=== PATIENT | male | born 1980 | race Caucasian/White ===

== ENCOUNTER → 2017-08-12 | Outpatient (CLI) | payer OTHER ==
--- NOTE | 2017-08-12 16:50 | Diagnostic Imaging Report ---
Exam: Brain MRI and intracranial MRA without IV contrast History: Right-sided cerebral CVA, dizziness, headache. Comparison studies: None. Technique: Brain: Pre-contrast: Sagittal T2; axial T2, T1-IR, MPGR, DWI, axial and coronal T2 flair Intracranial MRA: Axial 3-D [id number] with coronal, sagittal and 3-D MIP reformats. Findings: Brain: Scalp: No abnormal signal. No masses. Bone marrow: Normal in signal intensity. Brain sulci: Normal in size. Ventricles: Normal in size. No hydrocephalus. Extra-axial spaces: No mass, no fluid collection. Parenchyma: No mass, hemorrhage or acute ischemia. Chronic insult with encephalomalacia and gliosis centered along the right inferior frontal gyrus extends to the right superior insula involves the right inferior perirolandic gyri along the right subcentral gyrus in the right MCA vascular territory. No additional signal abnormalities. Suprasellar region: No abnormalities. Craniocervical junction: No abnormalities. The foramen magnum is patent. No Chiari malformations. Vessels: Normal flow-voids in the arteries and sinuses. Incidental findings: Nonspecific inflammatory mucosal thickening in the left frontal sinus, left ethmoids and bilateral maxillary sinuses. Intracranial MRA: Internal carotid arteries: Patent, no flow abnormalities. Middle cerebral arteries: Patent, no abnormalities in the M1 and proximal M2 segments. Anterior cerebral arteries: Patent, no abnormalities in the A1 and proximal A2 segments. Vertebral arteries: Patent, no flow abnormalities in the included intradural V4 segments. The origins and proximal segments of the posterior inferior cerebellar arteries are patent bilaterally. Basilar artery: Patent, no flow abnormalities. Posterior cerebral arteries: Patent, no flow abnormalities. Anatomical variants: Acom: Patent. Pcomms: Hypoplastic. Vertebral arteries:Codominant. IMPRESSION: Brain MRI: 1. Chronic right MCA territory vascular insult. 2. No additional intracranial abnormalities. Intracranial MRA: No intracranial MRA abnormalities. Signed by: Dr. Adolfo Salazar M.D. on 08/12/2017 4:47 PM
== END ==
LOC: MRI 14:33
PROVIDERS: ATTEND Internal Medicine
DX: I63.9 Cerebral infarction, unspecified (principal)
CPT/HCPCS: 70544; 70551

== ENCOUNTER 2021-01-13 13:32 | Emergency (ER) | payer OTHER ==
[~2021-01-13] VITALS: Ht 167.6 cm; Wt 102.1 kg
[2021-01-13] MEDS ORDERED: AUGMENTIN 875-1 EACH PO (13:48)
== END 2021-01-13 14:00 | disposition home or self-care (01) ==
LOC: FSED 13:56
DX: H92.01 Otalgia, right ear (principal); I10 Essential (primary) hypertension; K21.9 Gastro-esophageal reflux disease without esophagitis
CPT/HCPCS: 99282